=== PATIENT | female | born 1995 | race Caucasian/White ===

== ENCOUNTER 2021-12-25 08:53 | Observation (INO) | payer OTHER ==
--- OUTSIDE RECORDS SUMMARY | 2021-12-25 09:00 | XMS REPORT | Continuity of Care Document ---
:1995 Author Organization Formerly [facility] t Address [address] [place] [address] Care Team Providers Name Role Phone PCP, PATIENT DOES NOT HAVE A Primary Care Physician Unavaila ble TIFFANY SCHULTE Attending Clinician Unavailable Wilver Moreno Attending Clinician Unavailable Tiffany Schulte MD Attending Clinician Doctor Unassigned, [place] Attending Clinician Unavailable Michael Arroyo CRNA Attending Clinician Maribel Sanon MD Attending Clinician Only, Adc Test Attending Clinician Unavailable Emily Dalton RN Attending Clinician Unavailable 2, Adc Lab Attending Clinician Unavailable CHRISTINE VARNER Attending Clinician Unavailable Christine Varner MD Attending Clinician Pob, Adc Lab Main Attending Clinician Unavailable Ultrasound, Ang-Mfm Attending Clinician Unavailable Lola Aponte MD Attending Clinician [phone] LOLA APONTE Attending Clinician Unavailable TIFFANY SCHULTE Admitting Clinician Unavailable CHRISTINE AVRNER Admitting Clinician Unavailable Wilver Moreno Admitting Clinician Unavailable Tiffany Schulte MD Admitting Clinician Christine Varner MD Admitting Clinician Payers Payer Name Policy Type Policy Number Effective Date Expiration Date Tiffanie SAMUELSS [id number] 2015 HEALTH 00:00:00 Problems Condition Condition Condition Status Onset Resolution Last Treating Co mments Source Name Details Category Date Date Treatment Clinician Date Anemia Anemia Disease Active Univers affecting affecting 3-05 ity of 00:00: [place] [address] Medical Branch Obesity Obesity Disease Active Univers (BMI (BMI 7-07 ity of 30-39.9) 30-39.9) 00:00: [place] [address] Medical Branch Disease Active Overview: Univers complicate complicate 5-04 Formattin ity of d by d by 00:00: g of this [place] cerebral cerebral 00 note Medica l ventriculo ventriculo might be Branch megaly megaly different from the original. 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 Daughter is doing well Allergies, Adverse Reactions, Alerts Allergy Allergy Status Severity Reaction(s) Onset Inactive Treating Comm ents Source Name Type Date Date Clinician No Known DA Active U 0 [facility] [place] No Known DA Active U 0 [facility] 00:[facility] 00 l [facility] No Known DA Active U [facility] 8-[facility] 00:[facility]: [facility] 00 l [facility] No Known DA Active U [facility]ie 8-04 [facility] 00:[facility]: [facility] 00 l [facility] NO KNOWN Drug Active Univers ALLERGIE Class ity of S [facility] [place] Social History Social Habit Start Date Stop Date Quantity Comments Source Alcohol intake 2021-06-28 2021-06-28 Lifetime University of 00:00:00 00:00:00 non-drinker [facility] (finding) Branch Exposure to 2021-05-15 2021-06-14 Not sure University of SARS-CoV-2 00:00:00 16:04:00 [facility] (event) Branch Tobacco use and 2020-09-05 2020-09-05 Never used Universit y of exposure 00:00:00 00:00:00 [facility] [place] Sex Assigned At [birth year] Universit y of 00:00:00 00:00:00 [facility] [place] Smoking Status Start Date Stop Date Source Never smoker [facility] Medications Ordered Filled Start Stop Current Ordering Indication Dosage Frequency Signature Comments Components Source Medication Medication Date Date Medication? Clinician (SIG) Name Name levonorgest 2021- No [id number] 1{devic Univers reL 06-28 e} ity of (MIRENA) 16:15: 15:39 [place] IUD 1 00 :00 [employer] Branch levonorgest 2021- No [id number] 1{devi 1 Device, Univers reL 06-28 e} Intrauteri ity of (MIRENA) 16:15: 15:39 ne, ONCE, Sebastien as IUD 1 00 :00 1 dose, On [employer] Representative Fri Branch 06/28/21 at 1115, Routine Yes Take by [employer] vit 3-06 mouth. ity of calc,iron,f 16:11: [place] [address] Medical ( Branch VITAMIN ORAL) Yes Take by [employer] vit 3-06 mouth. ity of calc,iron,f 16:11: [address] ( Branch VITAMIN ORAL) ibuprofen Yes [id number] 600mg Take 1 Univers 600 mg 3-05 tablet by ity of tablet 00:00: mouth [place] 00 every 6 Medical (six) Branch hours as needed (Pain). Take with food or milk. ibuprofen Yes [id number] 600mg Take 1 Univers 600 mg 3-05 tablet by ity of tablet 00:00: mouth [place] 00 every 6 Medical (six) Branch hours as needed (Pain). Take with food or milk. ferrous 2020-03 Yes [id number] 325mg Take 1 Un christy sulfate 325 2-21 tablet by ity of mg (65 mg 00:00: mouth [place] iron) 00 daily. Medical tablet Branch ferrous 2020-03 Yes [id number] 325mg Take 1 Un christy sulfate 325 2-21 tablet by ity of mg (65 mg 00:00: mouth [place] iron) 00 daily. Medical tablet Branch Immunizations Ordered Filled Immunization Date Status Comments Sour e Immunization Name Name Rho (d) Immune 2021-03-12 Completed University of Globulin 00:00:00 [facility] [place] Rho (d) Immune 2021-03-12 Completed University of Globulin 00:00:00 [facility] [place] SARS-COV-2 COVID-19 2021-02-06 Completed Unive rsity of JERED/J&J VACCINE 00:00:00 [facility] [place] SARS-COV-2 COVID-19 2021-02-06 Completed Unive rsity of JERED/J&J VACCINE 00:00:00 [facility] [place] Influenza Virus 2020-11-07 Completed Universit y of Vaccine 00:00:00 [facility] [place] Influenza Virus 2020-11-07 Completed Universit y of Vaccine 00:00:00 [facility] [place] TDAP (ADACEL) 2020-10-31 Completed University of VACCINE 00:00:00 [facility] [place] TDAP (ADACEL) 2020-10-31 Completed University of VACCINE 00:00:00 [facility] [place] Vital Signs Vital Name Observation Time Observation Value Comments Source Systolic blood 2021-06-28 14:34:00 112 mm[Hg] Univer sity of pressure [facility] [place] Diastolic blood 2021-06-28 14:34:00 74 mm[Hg] Unive rsity of pressure [facility] [place] Heart rate 2021-06-28 14:34:00 68 /min [facility] Body temperature 2021-06-28 14:34:00 36.83 Tanya [facility] Respiratory rate 2021-06-28 14:34:00 18 /min [facility] Body height 2021-06-28 14:34:00 152.4 cm [facility] Body weight 2021-06-28 14:34:00 62.143 kg [facility] BMI 2021-06-28 14:34:00 26.76 kg/m2 [facility] Procedures Procedure Date / Time Performed Performing Clinician Sourc e DISCLOSURE AND 2021-06-28 05:01:00 Doctor Unassigned, No [facility] [place] CONSENT, MEDICAL AND Name Medical Bra [facility] SURGICAL PROCEDURES POCT TEST 2021-06-28 00:00:00 Tiffany Schulte [facility] [id number] 2019-03-05 00:00:00 02 [facility] Encounters Start End Encounter Admission Attending Care Care Encounter Source Date/Time Date/Time Type Type Clinicians Facility Department ID 2021-04-21 Outpatient P ADUM, [facility] [id number] Univers 18:52:40 TIFFANY oglesby [facility] 2021-03-11 Outpatient X [facility] [id number] Univers 00:26:13 ity [facility] 2019-03-05 Inpatient Josh, [facility] E[facility] [id number] [facility] 03:54:00 Wilver 59 Woman's [facility] 2021-08-09 2021-08-09 Outpatient R ADUM, [facility] [id number] Univers 15:00:00 15:00:00 TIFFANY oglesby [facility] 2021-08-09 2021-08-09 Outpatient R ADUM, [facility] [id number] Univers 15:00:00 15:00:00 TIFFANY oglesby [facility] 2021-06-28 2021-06-28 Outpatient R ADUM, [facility] [id number] Univers 09:30:00 10:07:23 TIFFANY gely [facility] 2021-06-28 2021-06-28 Office Adum, [facility] 1.2.840.114 [id number] Univers 09:30:00 10:07:23 Visit Tiffany Zelaya NICK 350.1.13.10 ity of [place] [phone] Ms dical NAL 134 [facility] 2021-06-28 2021-06-28 Orders Doctor ALEJANDRINA 1.2.840.114 [id number] Univers 00:00:00 00:00:00 Only Unassigned, KILO 350.1.13.10 ity of [place] [facility] 4.2.7.2.686 Sebastien as [phone] [address] 2021-06-14 2021-06-14 Outpatient R ADUM, [facility] [id number] Univers 16:00:00 16:48:27 TIFFANY oglesby [facility] 2021-06-14 2021-06-14 Routine Adum, [facility] 1.2.840.114 [id number] Univers 16:00:00 16:48:27 Tiffany L [place] 350.1.13.10 ity of Visit [place] [phone] Ms dical NAL [address] [place] [address] 2021-05-24 2021-05-24 Outpatient R [facility] [id number] Univers 15:30:00 15:58:29 TIFFANY ity [facility] 2021-05-24 2021-05-24 [facility] 1.2.840.114 [id number] Univers 15:30:00 15:58:29 Tiffany L [place] 350.1.13.10 ity of Visit [place] [phone] [address] 2021-05-24 2021-05-24 Outpatient R [facility] [id number] Univers 15:30:00 15:30:00 TIFFANY ity [facility] 2021-05-03 2021-05-05 Inpatient P [facility] [place] [id number] Univers 04:04:00 15:20:00 TIFFANY ity [facility] 2021-05-03 2021-05-05 [facility] 1.2.840.114 [id number] Univers 04:04:00 15:20:00 Encounter Tiffany Zelaya [place] 350.1.13.10 ity of [place] 4.2.7.2.686 [facility] [phone] [address] 2021-05-04 2021-05-04 Anesthesia [facility] 1.2.840.114 [id number] Univers 20:03:27 20:03:27 Event Michael ROMERO 350.1.13.10 i ty of [place] 4.2.7.2.686 [facility] [id number] [address] 2021-05-03 2021-05-03 Anesthesia Michael Arroyo [facility] 1.2.840.11 [id number] Univers 07:31:00 16:33:00 Event Maribel [place]onTON 350.1.13.10 ity of [facility] 4.2.7.2.[place] [id number] [facility] 083 Branch 2021-05-03 2021-05-03 Case Adum, [facility] 1.2.840.114 [id number] Univers 00:00:00 00:00:00 Management Tiffany ROMERO 350.1.13.10 ity of [place] [phone] Ms dical NAL 134 [facility] 2021-04-30 2021-04-30 Laboratory Only, Adc Test [place] 1.2.840. 114 [id number] Univers 09:45:00 10:00:00 Only Adum, Tiffany ROMERO 350.1.13.10 ity of [place] 4.2.7.2.686 [facility] [phone] [facility] [address] [place] 2021-04-30 2021-04-30 Outpatient R ADUM, [facility] [id number] Univers 09:45:00 09:45:00 TIFFANY ity [facility] 2021-04-30 2021-04-30 Outpatient R ADUM, [facility] [id number] Univers 09:00:00 09:14:04 TIFFANY ity [facility] 2021-04-30 2021-04-30 Routine Adum, [facility] 1.2.840.114 [id number] Univers 09:00:00 09:14:04 Tiffany ROMERO 350.1.13.10 ity of [place] [id number] Ms dical NAL 134 [facility] 2021-04-30 2021-04-30 Orders Doctor ALEJANDRIAN 1.2.840.114 [id number] Univers 00:00:00 00:00:00 Only Unassigned, KILO 350.1.13.10 ity of [place] [facility] 4.2.7.2.686 Sebastien as [phone] [facility] 009 Branch 2021-04-23 2021-04-23 Routine Adum, [facility] 1.2.840.114 [id number] Univers 13:00:00 13:36:31 Tiffany L [place] 350.1.13.10 ity of Visit [place] 4[place] [id number] Ms dical NAL 134 Branch [facility] 2021-04-23 2021-04-23 Outpatient R AD, [facility] [id number] Univers 13:00:00 13:36:31 TIFFANY ity [facility] 2021-04-21 2021-04-21 [facility] [id number] Univers 15:35:00 17:20:00 TIFFANY ity [facility] 2021-04-21 2021-04-21 [facility] 1.2.840.114 [id number] Univers 15:35:00 17:20:00 Encounter Tiffany ROMERO 350.1.13.10 [place] [phone] [facility] [address] [place] 2021-04-21 2021-04-21 Nurse ALEJANDRINA Dalton 1.2.840.114 [id number] Univers 00:00:00 00:00:00 Triage Emily BOATENG 350.1.13.10 it y of HOSPITAL 4.2.7.2.686 Sebast[place] as [id number] [facility] [address] [place] 2021-04-17 2021-04-17 Outpatient R AD, [facility] [id number] Univers 10:15:00 11:13:05 TIFFANY ity [facility] 2021-04-17 2021-04-17 [facility] 1.2.840.114 [id number] Univers 10:15:00 11:13:05 Tiffany ROMERO 350.1.13.10 ity of [place] [phone] Ms dical NAL 134 [facility] 2021-04-11 2021-04-11 Outpatient R AD, [facility] [id number] Univers 10:15:00 10:15:00 TIFFANY ity [facility] 2021-04-11 2021-04-11 Dermatology Nurse Practitioner 2, Adc Lab [facility] 1.2.840.114 [id number] Univers 10:15:00 10:15:00 Visit Adum, Tiffany ROMERO 350.1.13.10 ity [place] [phone] Ms dical NAL 353 [facility] 2021-04-10 2021-04-10 Outpatient R ADUM, [facility] [id number] Univers 16:15:00 16:58:36 TIFFANY ity [facility] 2021-04-10 2021-04-10 Routine Adum, [facility] 1.2.840.114 [id number] Univers 16:15:00 16:58:36 Tiffany ROMERO 350.1.13.10 ity of [place] [phone] [facility] 134 [facility] 2021-04-10 2021-04-10 Orders Doctor ALEJANDRINA 1.2.840.114 [id number] Univers 00:00:00 00:00:00 Only Unassigned, KILO 350.1.13.10 ity of [place] [facility] 4.2.7.2.686 Sebast[place] as [phone] [address] 2021-03-27 2021-03-27 Outpatient R ADUM, [facility] [id number] Univers 15:45:00 15:52:35 TIFFANY ity [facility] 2021-03-27 2021-03-27 Routine Adum, [facility] 1.2.840.114 [id number] Univers 15:45:00 15:52:35 Tiffany ROMERO 350.1.13.10 ity of [place] [id number] Ms dical NAL 134 [facility] 2021-03-27 2021-03-27 Outpatient R ADUM, [facility] [id number] Univers 15:45:00 15:45:00 TIFFANY ity [facility] 2021-03-20 2021-03-20 Outpatient R ADUM, [facility] [id number] Univers 16:15:00 16:57:40 TIFFANY ity [facility] 2021-03-20 2021-03-20 Routine Adum, [facility] 1.2.840.114 [id number] Univers 16:15:00 16:57:40 Tiffany Zelaya [place] 350.1.13.10 ity of [place] 4[place] [id number] [address] 2021-03-13 2021-03-13 Outpatient R ADUM, [facility] [id number] Univers 15:30:00 15:30:00 [facility] 2021-[facility] 2021-03-13 Outpatient R ADUM, [facility] [id number] Univers 11:00:00 11:00:00 [facility] 2021-03-12 2021-03-12 Outpatient R ADUM, [facility] [id number] Univers 10:45:00 12:06:22 [facility] 2021-03-12 2021-03-12 Routine Ad, [facility] 1.2.840.114 [id number] Univers 10:45:00 12:06:22 Tiffany Zelaya [place] 350.1.13.10 ity of [place] [phone] [address] 2021-03-12 2021-03-12 Case Adum, [facility] 1.2.840.114 [id number] Univers 00:00:00 00:00:00 Management Tiffany Zelaya [place] 350.1.13.10 ity of [place] [id number] [address] 2021-03-10 2021-03-11 Outpatient X CHRISTINE VARNER [facility] [id number] Univers 14:08:00 00:17:00 ity [facility] 2021-03-10 2021-03-11 Emergency Christine Varner [facility] 1.2.840.114 [id number] Univers 14:08:00 00:17:00 Cam NICK 350.1.13.10 i ty of [place] 4.2.7.2.686 [facility] [id number] [address] 2021-03-08 2021-03-08 Outpatient P ADUM, [facility] [id number] Univers 14:45:00 18:10:00 TIFFANY itgely [facility] 2021-03-08 2021-03-08 Hospital Ad, [facility] 1.2.840.114 [id number] Univers 14:45:00 18:10:00 Encounter Tiffany ROMERO 350.1.13.10 ity of [place] 4.2.7.2.686 [facility] [id number] [address] 2021-03-08 2021-03-08 Outpatient R AD, [facility] [id number] Univers 13:00:00 13:00:00 TIFFANY itgely [facility] 2021-03-08 2021-03-08 [facility] 1.2.243.824 [id number] Univers 00:00:00 00:00:00 Tiffany ROMERO 350.1.13.10 ity [facility] 4.2.7.2.686 [facility] PROFESSIO [phone] Me dical NAL [address] [place] [address] 2021-02-27 2021-02-27 Outpatient R ADUM, [facility] [id number] Univers 16:00:00 16:22:00 TIFFANY reny [facility] 2021-02-27 2021-02-27 Routine Ad, [facility] 1.2.840.114 [id number] Univers 16:00:00 16:22:00 Tiffany ROMERO 350.1.13.10 ity of [facility] 4.2.7.2.686 [facility] PROFESSIO [phone] Me dical NAL 134 [facility] 2021-02-27 2021-02-27 Outpatient R AD, [facility] [id number] Univers 16:00:00 16:00:00 TIFFANY batistagely [facility] 2021-02-19 2021-02-19 Case Adum, [facility] 1.2.840.114 [id number] Univers 00:00:00 00:00:00 Management Tiffany ROMERO 350.1.13.10 ity of [place].2.[place] [phone] Ms dical NAL 134 [facility] 2021-02-18 2021-02-18 Telephone Adum, [facility] 1.2.165.467 [id number] Univers 00:00:00 00:00:00 Tiffany ROMERO 350.1.13.10 ity of [place] 4.2.7.2.[place] [phone] Ms dical NAL 134 [facility] 2021-02-15 2021-02-15 Dermatology Nurse Practitioner Connie, Ad[facility] Lab Main [place] 1.2.8 40.114 [id number] Univers 09:15:00 09:30:00 Visit Adsravan, Tiffany ROMERO 350.1.13.10 ity [facility] 4.2.7.2.[place] [phone] Ms dical NAL 353 [facility] 2021-02-15 2021-02-15 Dermatology Nurse Practitioner Connie, [facility] Lab Main [facility] 1.2.8 40.114 [id number] Univers 09:15:00 09:30:00 Visit Adsravan, Tiffany ROMERO 350.1.13.10 ity of [facility] 4.2.7.2.[place] [phone] [facility] 2021-02-15 2021-02-15 Outpatient R AD, [facility] [id number] Univers 09:15:00 09:15:00 TIFFANY ity [facility] 2021-02-15 2021-02-15 Outpatient R ADUM, [facility] [id number] Univers 09:15:00 09:15:00 TIFFANY ity [facility] 2021-02-15 2021-02-15 Orders Doctor TINOCO 1.2.840.114 [id number] Univers 00:00:00 00:00:00 Only Unassigned, KILO 350.1.13.10 ity of [place] [facility] 4.2.7.2.686 Sebastien as [phone] [address] 2021-02-13 2021-02-13 Outpatient R ADUM, [facility] [id number] Univers 13:00:00 13:46:14 TIFFANY [facility] 2021-02-13 2021-02-13 Routine Adum, [facility] 1.2.840.114 [id number] Univers 13:00:00 13:46:14 Tiffany L [place] 350.1.13.10 ity of [place] [phone] Ms dical NAL [address] [place] [address] 2021-02-13 2021-02-13 Outpatient R ADUM, [facility] [id number] Univers 13:00:00 13:46:14 TIFFANY [facility] 2021-01-30 2021-01-30 Outpatient R ADUM, [facility] [id number] Univers 13:00:00 13:00:00 [facility] 2021-01-17 2021-01-17 Dermatology Nurse Practitioner Ultrasound, [facility] 1.2 .840.114 [id number] Univers 10:42:05 11:57:05 Visit Lola Aponte Radha SKID ADZER 350.1. 13.10 ity of REGIONAL 4.2.7.2.686 Sebastien as MATERNAL [phone] Med ical & CHILD [address] [place] [address] 2021-01-17 2021-01-17 Outpatient P FAY [facility] [id number] Univers 10:45:00 10:45:00 BUNKER HILLGely [facility] 2021-01-02 2021-01-02 Outpatient R ADUM, [facility] [id number] Univers 16:00:00 16:26:50 TIFFANY [facility] 2021-01-02 2021-01-02 Routine Adum, [facility] 1.2.840.114 [id number] Univers 15:46:24 16:26:50 Tiffany ROMERO 350.1.13.10 ity of [place] 4[place] [id number] Ms dical NAL [address] [place] [address] 2020-11-23 2020-11-23 Dermatology Nurse Practitioner 2, Adc Lab [facility] 1.2.840.114 [id number] Univers 11:38:15 11:53:15 Visit Adum, Tiffany [place] 350.1.13.10 ity of [place] 4.2.7.2.[place] [phone] Ms dical nal 353 [facility] 2020-11-23 2020-11-23 Routine Adum, [facility] 1.2.840.114 [id number] Univers 10:47:15 11:36:42 Tiffany [place] 350.1.13.10 ity of Visit [place] 4.2.7.2.686 [place] [phone] Ms dical nal 134 [facility] 2020-11-23 2020-11-23 Outpatient R ADUM, [facility] [id number] Univers 11:00:00 11:00:00 TIFFANY itgely [facility] 2020-11-23 2020-11-23 Case Adum, [facility] 1.2.840.114 [id number] Univers 00:00:00 00:00:00 Management Tiffany [place] 350.1.13.10 ity of [place] 4.2.7.2.[place] [phone] Ms dical nal 134 [facility] 2020-11-01 2020-11-01 Telephone Adum, [facility] 1.2.400.191 [id number] Univers 00:00:00 00:00:00 Tiffany [place] 350.1.13.10 ity of [place] 4.2.7.2.[place] [phone] Ms dical nal 134 [facility] 2020-10-26 2020-10-26 Outpatient R ADUM, [facility] [id number] Univers 11:00:00 11:00:00 TIFFANY itgely [facility] 2020-10-26 2020-10-26 Routine Adum, [facility] 1.2.840.114 [id number] Univers 10:19:32 10:47:46 Tiffany Zelaya [place] 350.1.13.10 ity of Visit [place] 4.2.7.2.686 [place] [phone] Ms dical nal 134 [facility] 2020-10-26 2020-10-26 Routine Adum, [facility] 1.2.840.114 [id number] Univers 10:19:32 10:47:46 Tiffany [place] 350.1.13.10 ity of Visit [place] 4.2.7.2.686 [place] [phone] Ms dical nal 134 [facility] 2020-10-24 2020-10-24 Outpatient R ADUM, [facility] [id number] Univers 11:00:00 11:00:00 TIFFANY ity of [facility] [place] 2020-09-26 2020-09-26 Dermatology Nurse Practitioner 2, Adc Lab [facility] 1.2.840.114 [id number] Univers 10:39:53 10:54:53 Visit Adum, Tiffany Romero 350.1.13.10 ity of [place] 4.2.7.2.686 [place] [phone] Ms dical nal 353 [facility] 2020-09-26 2020-09-26 Initial Adum, [facility] 1.2.840.114 [id number] Univers 09:15:14 10:31:31 Tiffany Zelaya [place] 350.1.13.10 ity of Visit [place] 4.2.7.2.686 [place] [phone] Ms dical nal 134 [facility] 2020-09-26 2020-09-26 Outpatient R ADUM, [facility] [id number] Univers 09:30:00 09:30:00 TIFFANY ity of [facility] 2020-09-26 2020-09-26 Orders Doctor ALEJANDRINA [id number] [employer] 00:00:00 00:00:00 Only Unassigned, KILO [id number] ity of [place] [facility] [id number] Sebastien as [phone] [address] 2020-09-05 2020-09-05 Office Adum, [facility] [id number] Univers 09:42:56 10:37:53 Visit Tiffany Romero [id number] [facility] [id number] Daniella Ruiz [phone] Ms dical [address] 2020-09-05 2020-09-05 Outpatient Justin SCHULTE [facility] [id number] [employer] 10:00:00 10:00:00 [facility] Test Description Test Time Test Comments Results Result Comments Source POCT TEST 2021-06-28 14:39:00 Test Item Value Reference Range Interpretation Comme nts POCT PREG (test code = 1605) Negative On board controls acceptable with C Line (test code = 3574) Yes POCT PREG LOT # (test code = 3575) POCT PREG TEST DATE (test code = 3576) [facility] [id number] 15:59:00 Test Item Value Reference Range Interpretation Comments HEMOGLOBIN (test code = HGB) 7.6 g/dL 10.7-13.9 L HEMATOCRIT (test code = HCT) 23.7 % 32.1-42.1 L HGB [id number] 04:44:00 Test Item Value Reference Range Interpretation Comments HEMOGLOBIN (test code = 7.5 g/dL 10.7-13.9 L RESU LTS VERIFIED BY HGB) REPEAT ANALYSIS HEMATOCRIT (test code = 23.4 % 32.1-42.1 L HCT) AG HEPATITIS B [id number] 06:03:00 Test Item Value Reference Range Interpretation Comments AG HEPATITIS B SURFACE (test code NONREACTIVE NONREACTIVE = HBSAG) IS CONSENT FORM SIGNED FOR HIV TESTING? YAB HEPATITIS C [id number] 06:03:00 Test Item Value Reference Range Interpretation Comments AB HEPATITIS C (test code = NONREACTIVE NONREACTIVE HCVAB) SIGNAL TO CUTOFF (test code = 0.10 <0.80 N CUTOFF) IS CONSENT FORM SIGNED FOR HIV TESTING? YAB [id number] 06:03:00 Test Item Value Reference Range Interpretation Comments AB TREPONEMA (test code = TREPAB) NONREACTIVE NONREACTIVE IS CONSENT FORM SIGNED FOR HIV TESTING? YAB HIV 1 06:03:00 Test Item Value Reference Range Interpretation Comments AB HIV 1 2 (test NONREACTIVE NONREACTIVE Done by [facility] code = [id number]) 4th Gen HIV Ag/Ab Combo Screen IS CONSENT FORM SIGNED FOR HIV TESTING? YAG HEPATITIS B [id number] 05:16:00 Test Item Value Reference Range Interpretation Comments AG HEPATITIS B SURFACE (test code NONREACTIVE NONREACTIVE = HBSAG) IS CONSENT FORM SIGNED FOR HIV TESTING? YAB HEPATITIS C [id number] 05:16:00 Test Item Value Reference Range Interpretation Comments AB HEPATITIS C (test code = HCVAB) NONREACTIVE SIGNAL TO CUTOFF (test code = CUTOFF) <0.80 IS CONSENT FORM SIGNED FOR HIV TESTING? YAB [id number] 05:16:00 Test Item Value Reference Range Interpretation Comments AB TREPONEMA (test code = TREPAB) NONREACTIVE NONREACTIVE IS CONSENT FORM SIGNED FOR HIV TESTING? YAB HIV 1 05:16:00 Test Item Value Reference Range Interpretation Comments AB HIV 1 2 (test code = CIK21TG) NONREACTIVE IS CONSENT FORM SIGNED FOR HIV TESTING? YCBC W/AUTO [id number] 04:30:00 Test Item Value Reference Range Interpretation Comments WHITE BLOOD CELL (test code = WBC) 6.7 K/mm3 6.6-12.1 N RED BLOOD CELL (test code = RBC) 3.89 M/mm3 3.45-5.01 N HEMOGLOBIN (test code = HGB) 11.2 g/dL 10.7-13.9 N HEMATOCRIT (test code = HCT) 34.0 % 32.1-42.1 N MEAN CELL VOLUME (test code = MCV) 87 fL 84.1-94.8 N MEAN CELL HGB (test code = MCH) 28.8 pg 27-35 N MEAN CELL HGB CONCETRATION (test 32.9 gm/dL 32.2-34.1 N code = MCHC) RED CELL DISTRIBUTION WIDTH (test 14.2 % 12.4-16.5 N code = RDW) PLATELET COUNT (test code = PLT) 176 K/mm3 133-385 N IMMATURE PLATELET FRACTION (test 0.0 % 0.0-10.8 N code = IPF) MEAN PLATELET VOLUME (test code = 10.6 fl 9.1-12.7 N MPV) NEUTROPHIL % (test code = NT%) 75.9 % 56.5-79.4 N LYMPHOCYTE % (test code = LY%) 16.4 % 14.3-34.3 N MONOCYTE % (test code = MO%) 7.3 % 5.1-10.4 N EOSINOPHIL % (test code = EO%) 0.0 % 0.1-3.0 L BASOPHIL % (test code = BA%) 0.0 % 0.1-1.0 L NEUTROPHIL # (test code = NT#) 5.1 K/mm3 LYMPHOCYTE # (test code = LY#) 1.1 K/mm3 MONOCYTE # (test code = MO#) 0.5 K/mm3 EOSINOPHIL # (test code = EO#) 0 K/mm3 BASOPHIL # (test code = BA#) 0.0 K/mm3 RBC MORPHOLOGY REQUIRED (test code NORMAL NORMAL = RBCM) PLATELET MORPHOLOGY REQUIRED (test NORMAL NORMAL code = PLTMR)
[2021-12-25 09:30] LABS: Hematocrit 36.2 % (36.0-45.0); Lymphocytes % 12.4 % (15.3-44.8); MCV 84.1 fL (80-100); MPV 7.5 fL (7.6-11.3)
[2021-12-25 09:37] LABS: Urine Blood Negative (Negative); Urine Glucose Negative (Negative); Urine Protein Negative (Negative)
[2021-12-25 09:52] LABS: Albumin 3.8 g/dL (3.4-5.0); Bilirubin Total 0.5 mg/dL (0.2-1.0); Potassium 3.8 mmol/L (3.5-5.1); Protein, Total 7.2 g/dL (6.4-8.2)
[2021-12-25 09:53] LABS: Urine Bacteria <20 /HPF (<20); Urine RBC <5 /HPF (None Seen)
--- NOTE | 2021-12-25 11:10 | RAD REPORT ---
EXAM DESCRIPTION: CTAbdomen Pelvis W Contrast - 12/25/2021 10:50 am CLINICAL HISTORY: abd pain COMPARISON: No comparisons TECHNIQUE: CT of the abdomen and pelvis was performed with IV contrast. All CT scans are performed using dose optimization technique as appropriate and may include automated exposure control or mA/KV adjustment according to patient size. FINDINGS: Lower chest: Small hiatal hernia. Liver: No acute abnormality or suspicious lesions. Biliary: No biliary ductal dilatation. Stomach: No significant focal abnormality. Duodenum: No significant focal abnormality. Pancreas: No significant abnormality. Spleen: No significant abnormality. Adrenal: No suspicious lesions. Kidney/ureter: No hydronephrosis. No renal calculi. Retroperitoneum: No retroperitoneal adenopathy. Vascular: No aneurysm. Bowel: Abnormally dilated appendix in the right lower quadrant demonstrating wall thickening. Stool i s present within the lumen.. Peritoneum: Small volume of free fluid. Bladder: Grossly unremarkable. Reproductive: Cystic structures in both adnexa probably physiologic cysts. Bones: No acute fracture. Other: n/a IMPRESSION: Abnormally dilated and thickened appendix with minimal periappendiceal stranding is susp icious for early or mild acute appendicitis. Suggest clinical correlation.
--- NOTE | 2021-12-25 11:26 | ER ---
Nurse's Notes [facility] Name: Peggy Puri Age: 26 yrs Sex: Female : 1995 Arrival Date: 12/25/2021 Time: 08:58 Bed 6 Private MD: Diagnosis: Unspecified acute appendicitis Presentation: 12/25 09:09 Chief complaint: Patient states: pain started in her stomach about two to three days kc6 ago. Coronavirus screen: Vaccine status: Patient reports receiving the 2nd dose of the covid vaccine. At this time, the client does not indicate any symptoms associated with coronavirus-19. Ebola Screen: No symptoms or risks identified at this time. Initial Sepsis Screen: Does the patient meet any 2 criteria? No. Patient's initial sepsis screen is negative. Does the patient have a suspected source of infection? No. Patient's initial sepsis screen is negative. Risk Assessment: Do you want to hurt yourself or someone else? Patient reports no desire to harm self or others. Onset of symptoms was December 23, 2021. 09:09 Method Of Arrival: Ambulatory kc6 09:09 Acuity: KENNETH 3 kc6 Triage Assessment: 09:12 General: Appears in no apparent distress. comfortable, Behavior is calm, cooperative, kc6 appropriate for age. Pain: Complains of pain in epigastric area, left upper quadrant and left lower quadrant Pain does not radiate. Pain currently is 3 out of 10 on a pain scale. at worst was 8 out of 10 on a pain scale. Quality of pain is described as aching, stabbing, throbbing, Pain began 2-3 days ago. Is continuous, Alleviated by nothing. Aggravated by increased activity, Current management is with Tylenol, is ineffective. EENT: No signs and/or symptoms were reported regarding the EENT system. Neuro: Larsen Agitation-Sedation Scale (RASS): 0 - Alert and Calm Level of Consciousness is awake, alert, obeys commands, Oriented to person, place, time, situation, Appropriate for age. Cardiovascular: Heart tones S1 S2 present Capillary refill < 3 seconds. Respiratory: Airway is patent Respiratory effort is even, unlabored, Respiratory pattern is regular, symmetrical, Breath sounds are clear bilaterally. GI: Abdomen is flat, non-distended, Last BM was December 24, 2021. Bowel sounds present X 4 quads. Abd is soft X 4 quads Abdomen is tender to palpation in epigastric area, left upper quadrant and left lower quadrant Reports epigastric pain, Patient currently denies diarrhea, nausea, vomiting. : No signs and/or symptoms were reported regarding the genitourinary system. Derm: No signs and/or symptoms reported regarding the dermatologic system. Skin is intact, Skin is pink, warm \T\ dry. Musculoskeletal: No signs and/or symptoms reported regarding the musculoskeletal system. Circulation, motion, and sensation intact. Capillary refill < 3 seconds, Range of motion: intact in all extremities. 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 - Social history:: Smoking status: Patient denies any tobacco usage or history of. Screenin:14 Abuse screen: Denies threats or abuse. Denies injuries from another. Nutritional kc6 screening: No deficits noted. Tuberculosis screening: No symptoms or risk factors identified. Fall Risk No fall in past 12 months (0 pts). No secondary diagnosis (0 pts). IV access (20 points). Ambulatory Aid- None/Bed Rest/Nurse Assist (0 pts). Gait- Normal/Bed Rest/Wheelchair (0 pts) Mental Status- Oriented to own ability (0 pts). Total Almonte Fall Scale indicates No Risk (0-24 pts). Assessment: 09:18 Reassessment: see triage assessment. kc6 10:16 Reassessment: Patient appears in no apparent distress at this time. No changes from kc6 previously documented assessment. Patient and/or family updated on plan of care and expected duration. Pain level reassessed. Patient is alert, oriented x 3, equal unlabored respirations, skin warm/dry/pink. client stated her pain is increased to a 6/10. 11:26 Reassessment: Patient appears in no apparent distress at this time. No changes from kc6 previously documented assessment. Patient and/or family updated on plan of care and expected duration. Pain level reassessed. Patient is alert, oriented x 3, equal unlabored respirations, skin warm/dry/pink. GERHARD Chavez at bedside. client stated her pain is increased to 8/10. 12:05 Reassessment: Patient appears in no apparent distress at this time. No changes from kc6 previously documented assessment. Patient and/or family updated on plan of care and expected duration. Pain level reassessed. Patient is alert, oriented x 3, equal unlabored respirations, skin warm/dry/pink. client stated her pain is decreased to 4/10. taken to preop with OR nurse. Vital Signs: 09:09 BP 119 / 78 LA Sitting (auto/reg); Pulse 69 LA; Resp 16 S; Temp 98.1(O); Pulse Ox 100% kc6 on R/A; Weight 58.97 kg (R); Height 5 ft. 0 in. (152.40 cm) (R); Pain 3/10; 10:15 BP 110 / 67; Pulse 71; Resp 16 S; Temp 98.2(O); Pulse Ox 100% on R/A; Pain 6/10; kc6 11:24 BP 109 / 57; Pulse 68; Resp 16 S; Temp 98.0(O); Pulse Ox 100% ; Pain 8/10; kc6 12:06 BP 129 / 71; Pulse 74; Resp 18 S; Temp 98.1(O); Pulse Ox 100% on R/A; Pain 4/10; kc6 09:09 Body Mass Index 25.39 (58.97 kg, 152.40 cm) kc6 ED Course: 08:58 Patient arrived in ED. rg4 09:01 Cheryle Apodaca, RN is Primary Nurse. kc6 09:01 Francisca Bernstein FNP-C is PHCP. kb 09:01 José Miguel Wiseman DO is Attending Physician. kb 09:12 Triage completed. kc6 09:17 Arm band placed on. kc6 09:26 CBC with Diff Sent. kc6 09:26 CMP Sent. kc6 09:26 Lipase Sent. kc6 09:30 Inserted saline lock: 20 gauge in right antecubital area, using aseptic technique. kc6 Blood collected. 09:37 Urine Microscopic Only Sent. kc6 10:52 CT Abd/Pelvis - IV Contrast Only In Process Unspecified. EDMS 11:26 Raghav Lee MD is Hospitalizing Provider. kb 12:04 SARS RAPID Sent. kc6 12:06 No provider procedures requiring assistance completed. Patient admitted, IV remains in kc6 place. 12:07 Patient has correct armband on for positive identification. Bed in low position. Call kc6 light in reach. Side rails up X2. Adult w/ patient. Administered Medications: 12:04 Drug: Flagyl (metroNIDAZOLE) 500 mg Volume: 100 ml; Route: IVPB; Rate: 200 ml/hr; kc6 Infused Over: 30 mins; Site: right antecubital; 12:09 Follow up: Response: No adverse reaction; IV Status: Infusion continued kc6 12:04 Drug: NS 0.9% 1000 ml Route: IV; Rate: 125 ml/hr; Site: right antecubital; kc6 12:09 Follow up: Response: No adverse reaction; IV Status: Infusion continued kc6 12:05 Drug: morphine 4 mg Route: IVP; Infused Over: 4 mins; Site: right antecubital; kc6 12:08 Follow up: Response: No adverse reaction; Pain is decreased; RASS: Alert and Calm (0) kc6 12:05 Drug: Zofran (Ondansetron) 4 mg Route: IVP; Site: right antecubital; kc6 12:08 Follow up: Response: No adverse reaction; Nausea is decreased kc6 12:05 Drug: Rocephin (cefTRIAXone) 1 grams Route: IV; Rate: calculated rate; Site: right kc6 antecubital; 12:09 Follow up: Response: No adverse reaction; IV Status: Completed infusion; IV Intake: [id number] Medication: 12:07 VIS not applicable for this client. kc6 Intake: 12:09 IV: 10ml; Total: 10ml. kc6 Outcome: 11:26 Decision to Hospitalize by Provider. kb 12:07 Admitted to OR accompanied by nurse, via wheelchair, with chart. kc6 12:07 Condition: stable 12:07 Instructed on the need for admit, Demonstrated understanding of need for admit/surgery. 12:09 Patient left the ED. kc6 Signatures: Dispatcher [employer] EDAL Francisca Bernstein, KENNEL MANAGER-C KENNEL MANAGER-Anahy Wolf rg4 Apodaca, Cheryle, RN RN kc6
--- NOTE | 2021-12-25 11:27 | EDPHYS ---
Physician Documentation [facility] Name: Peggy Puri Age: 26 yrs Sex: Female : 1995 Arrival Date: 12/25/2021 Time: 08:58 Bed 6 Private MD: ED Physician José Miguel Wiseman HPI: 12/25 12:13 This 26 yrs old Female presents to ER via Ambulatory with complaints of Abdominal Pain. kb 12:13 The patient presents with abdominal pain in the periumbilical area. Onset: The kb symptoms/episode began/occurred 2 day(s) ago. The symptoms do not radiate. Associated signs and symptoms: none. The symptoms are described as constant. Modifying factors: The symptoms are alleviated by nothing, the symptoms are aggravated by nothing. Severity of pain: At its worst the pain was moderate in the emergency department the pain is unchanged. The patient has not experienced similar symptoms in the past. The patient has not recently seen a physician. 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 - Social history:: Smoking status: Patient denies any tobacco usage or history of. ROS: 12:13 Constitutional: Negative for fever, chills, and weight loss. kb 12:13 Abdomen/GI: Positive for abdominal pain, Negative for nausea, vomiting, and diarrhea. 12:13 All other systems are negative. Exam: 12:13 Constitutional: This is a well developed, well nourished patient who is awake, alert, kb and in no acute distress. Head/Face: Normocephalic, atraumatic. ENT: Moist Mucous membranes Cardiovascular: Regular rate and rhythm with a normal S1 and S2. No gallops, murmurs, or rubs. No pulse deficits. Respiratory: Respirations even and unlabored. No increased work of breathing. Talking in full sentences Skin: Warm, dry with normal turgor. Normal color. MS/ Extremity: Pulses equal, no cyanosis. Neurovascular intact. Full, normal range of motion. Neuro: Awake and alert, GCS 15, oriented to person, place, time, and situation. Moves all extremities. Normal gait. Psych: Awake, alert, with orientation to person, place and time. Behavior, mood, and affect are within normal limits. 12:13 Abdomen/GI: Inspection: abdomen appears normal, Bowel sounds: normal, Palpation: soft, in all quadrants, moderate abdominal tenderness, in the right upper quadrant and right lower quadrant. Vital Signs: 09:09 BP 119 / 78 LA Sitting (auto/reg); Pulse 69 LA; Resp 16 S; Temp 98.1(O); Pulse Ox 100% kc6 on R/A; Weight 58.97 kg (R); Height 5 ft. 0 in. (152.40 cm) (R); Pain 3/10; 10:15 BP 110 / 67; Pulse 71; Resp 16 S; Temp 98.2(O); Pulse Ox 100% on R/A; Pain 6/10; kc6 11:24 BP 109 / 57; Pulse 68; Resp 16 S; Temp 98.0(O); Pulse Ox 100% ; Pain 8/10; kc6 12:06 BP 129 / 71; Pulse 74; Resp 18 S; Temp 98.1(O); Pulse Ox 100% on R/A; Pain 4/10; kc6 09:09 Body Mass Index 25.39 (58.97 kg, 152.40 cm) kc6 MDM: 09:01 Patient medically screened. kb 11:25 Data reviewed: vital signs, nurses notes. Data interpreted: Pulse oximetry: on room air kb is 100 %. Interpretation: normal. Counseling: I had a detailed discussion with the patient and/or guardian regarding: the historical points, exam findings, and any diagnostic results supporting the discharge/admit diagnosis, lab results, radiology results, the need for further work-up and treatment in the hospital. Physician consultation: Raghav Lee MD was contacted at 11:26, regarding admission, patient's condition, and will see patient shortly. 12/25 09:10 Order name: CBC with Diff; Complete Time: 09:33 kb 12/25 09:10 Order name: CMP; Complete Time: 09:57 kb 12/25 09:10 Order name: Lipase; Complete Time: 09:57 kb 12/25 09:10 Order name: Urine Microscopic Only; Complete Time: 09:57 kb 12/25 09:37 Order name: Urine Dipstick-Ancillary; Complete Time: 09:38 EDMS 12/25 10:42 Order name: Urine --Ancillary (enter results); Complete Time: 10:56 bd 12/25 09:10 Order name: IV Saline Lock; Complete Time: 09:21 kb 12/25 10:37 Order name: CT Abd/Pelvis - IV Contrast Only; Complete Time: 11:22 kb 12/25 11:44 Order name: SARS RAPID kb 12/25 09:10 Order name: Labs collected and sent; Complete Time: 09:21 kb 12/25 09:10 Order name: Urine Dipstick-Ancillary (obtain specimen); Complete Time: 09:37 kb 12/25 09:10 Order name: Urine Test (obtain specimen); Complete Time: 09:37 kb Administered Medications: 12:04 Drug: Flagyl (metroNIDAZOLE) 500 mg Volume: 100 ml; Route: IVPB; Rate: 200 ml/hr; kc6 Infused Over: 30 mins; Site: right antecubital; 12:09 Follow up: Response: No adverse reaction; IV Status: Infusion continued kc6 12:04 Drug: NS 0.9% 1000 ml Route: IV; Rate: 125 ml/hr; Site: right antecubital; kc6 12:09 Follow up: Response: No adverse reaction; IV Status: Infusion continued kc6 12:05 Drug: morphine 4 mg Route: IVP; Infused Over: 4 mins; Site: right antecubital; kc6 12:08 Follow up: Response: No adverse reaction; Pain is decreased; RASS: Alert and Calm (0) kc6 12:05 Drug: Zofran (Ondansetron) 4 mg Route: IVP; Site: right antecubital; kc6 12:08 Follow up: Response: No adverse reaction; Nausea is decreased kc6 12:05 Drug: Rocephin (cefTRIAXone) 1 grams Route: IV; Rate: calculated rate; Site: right [facility] antecubital; 12:09 Follow up: Response: No adverse reaction; IV Status: Completed infusion; IV Intake: [id number] Disposition: 21:12 Co-signature as Attending Physician, José Miguel Wiseman DO I was immediately available on-site ms3 in the Emergency Department for consultation in the care of the patient.. Disposition Summary: 12/25/21 11:26 Hospitalization Ordered Hospitalization Status: Observation kb Provider: Raghav Lee Location: Telemetry/MedSurg (observation) kb Condition: Stable kb Problem: new kb Symptoms: are unchanged kb Bed/Room Type: Standard Room Assignment: Diagnosis - Unspecified acute appendicitis kb Forms: - Medication Reconciliation Form kb - SBAR form kb Signatures: Dispatcher [employer] EDMS Francisca Bernstein, RAMONC MEENU-José Miguel Sandoval DO DO ms3 Cheryle Apodaca, RN RN kc6
[2021-12-25] MEDS ORDERED: MORPHINE 4 MG/ML SYR ONE (11:33)
[2021-12-25] MEDS ORDERED: CEFTRIAXONE 1000 MG/VIAL ONE (11:33)
[2021-12-25] MEDS ORDERED: METRONIDAZOLE 500mg IVPB 500 MG/100 ML BAG IV ONE (11:34)
[2021-12-25] MEDS ORDERED: ONDANSETRON 4 MG/2 ML VIAL ONE ×3 (11:34→14:25)
[2021-12-25] MEDS ORDERED: NA CHLORIDE 0.9% 1,000 ML ONE (11:34)
[2021-12-25 12:43] VITALS: O2SAT 100
[2021-12-25 12:48] LABS: SARS-CoV-2 Antigen Rapid Res Negative (Negative)
[2021-12-25] MEDS: BUPIVACAINE 0.5% Inj,MDV 50 mL VIAL ONE ×2 (12:50→13:32)
[2021-12-25] MEDS ORDERED: ROCURONIUM 50 MG/5 ML VIAL IV ONE (13:08)
[2021-12-25] MEDS ORDERED: FENTANYL CITR 100 MCG/2 ML ONE (13:08)
[2021-12-25] MEDS ORDERED: MIDAZOLAM HCL 2 MG/2 ML INJ ONE (13:08)
[2021-12-25] MEDS ORDERED: propofoL 200 MG/20 ML VIAL IV ONE (13:08)
[2021-12-25] MEDS ORDERED: LIDOCAINE 2% MPF 5 ML VIAL ONE (13:11)
[2021-12-25] MEDS ORDERED: KETOROLAC 30 MG/ML INJ ONE (13:44)
[2021-12-25] MEDS ORDERED: GLYCOPYRROLATE 0.2 MG/ML SYR ONE (13:44)
[2021-12-25] MEDS ORDERED: NEOSTIGMINE 1 MG/ML -5 ML ONE (13:45)
--- NOTE | 2021-12-25 13:49 | P.BOP ---
Preoperative diagnosis: acute appendicitis Postoperative diagnosis: same Primary procedure: Laparoscopic appendectomy Estimated blood loss: <10cc Specimen: tj Findings: inflammed distended appendix Anesthesia: General Complications: None Transferred to: Recovery Room Condition: Good
--- NOTE | 2021-12-25 13:50 | HP ---
Date of Admission: 12/25/2021 Diagnosis: Acute appendicitis. History Of Present Illness: This is the case of a 26-year-old patient, who came to the ER today afte r having 2-1/2 days of abdominal pain, started in the periumbilical, moved to the right side, sometim es right upper quadrant, sometimes in the lower abdomen, but is mainly on the ventral region and righ t side. She thought it was just gas. She has been trying to deal with that for the last 2-1/2 days until today she felt like she was going to and she decided to come to the ER. CAT scan was done and it was found to have acute appendicitis with dilated appendix and periappendiceal fluid, and a larson rgical consult was obtained for emergent appendectomy. She denies any trauma, any dysuria, hematuria , hematochezia, melena. Denies any recent traveling out of the country. Denies any family member si ck at home. Review of Systems: Ten points otherwise unremarkable. Allergies: NONE. Past Medical History: None. Medications: None. Past Surgical History: None. , she has 5 kids. Immunization History: She had a second dose of COVID vaccine. Social History: She does not smoke. She does not drink alcohol. Physical Examination: General: The patient is awake, alert. HEENT: Pupils are equal and reactive. Anicteric. Neck: Supple. Chest: Clear. Abdomen: Abdominal tenderness present. It came from the epigastric, periumbilical and then right lo wer quadrant. The etiology of the epigastric is unknown at this moment, we noted right lower quadran t and periumbilical correlated with the CAT scan findings. Breasts: Deferred. Pelvic: Deferred. Rectal: Deferred. Extremities: Good capillary refill. Cranial nerves 2 through 12 grossly within normal limits. Laboratory Data: Blood work shows WBC count of 8.3 with hemoglobin of 12 and platelets of 263. Pota ssium 3.8, chloride is 110. UA is nitrate negative. negative. Assessment And Plan: This is the case of a 26-year-old patient with history of abdominal pain for 3 days. Once again, she say she is trying to "tough her up". She has etiquette and she knows where he r pain is and then she feels at this time this morning she could not take it and the pain moved. Dur ing the imaging, found to have a dilated appendix with periappendiceal fluid. That will explain the right lower quadrant and periumbilical area at the epigastric area. Obviously, she has been through a stress of more than a day. 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 She may have more than 1 pathology, although the emergent 1 right now is the tj endix. We advised her the importance of diet and also following up her compressor station chief engineer. The aimee ent was emergently booked in the OR with benefits, alternatives, and risks of laparoscopic possible o pen appendectomy fully explained, which include, but not limited to infection, bleeding, damage to ad jacent structures, anesthesia complication, negative appendix, DE, and even . She also understa nds this may not relieve any symptoms. She might need more than one surgical intervention. JENNIFER Voice ID: [id number]
[2021-12-25] MEDS ORDERED: MEPERIDINE HCL 25 MG/ML SYR ONE (14:25)
[2021-12-25] MEDS: HYDROMORPHONE HCL 1 MG/ML INJ ONE ×2 (14:25→14:45)
[2021-12-25] MEDS: NA CHLORIDE 0.9% 1,000 ML IV SCH (15:52)
[2021-12-25 16:13] VITALS: BMI 25.4
[2021-12-25] MEDS: METRONIDAZOLE 500mg IVPB 500 MG/100 ML BAG IV SCH (17:11)
[2021-12-25] MEDS: CEFOXITIN 1 GM in NA CHLORIDE 0.9% 50 ML IVPB SCH (17:11)
[2021-12-25] MEDS: HYDROCODONE/APAP 5/325 MG TAB PO PRN (17:17)
[2021-12-25] MEDS: MORPHINE 2 MG/ML SYR IV PRN ×2 (19:38→23:28)
[2021-12-25] MEDS: ONDANSETRON 4 MG/2 ML VIAL IV PRN (19:38)
--- NOTE | 2021-12-25 22:17 | OP ---
Date of Procedure: 12/25/2021 Surgeon: Raghav Lee MD Preoperative Diagnosis: Appendicitis. Postoperative Diagnosis: Appendicitis. Procedure: Laparoscopic appendectomy. Estimated Blood Loss: Less than 10 cc. Specimen: Inflamed dilated appendix. Anesthesia: General plus local. Complications: None. Indications: This is a case of a 26-year-old patient with 3-day history of abdominal pain and today decided to come to the ER because it was too intense, the pains and she was diagnosed with acute appe ndicitis. So, she was taken emergently to the operating room for laparoscopic possible open appendec carmen with benefits, alternatives, and risks previously explaining including, but not limited to infec tion, bleeding, damage to adjacent structures, anesthesia complication, [place] and even . She also understands this may not relieve her symptoms. She might need more than one surgical intervention. She understood and signed consent. Procedure In Detail: The patient was brought to the operating room and placed in supine position. A nesthesia was done without complication. Abdominal area was prepped and draped in a sterile fashion. Marcaine 0.5% was injected for local anesthetic followed by sharp incision of the skin in the infra umbilical region. Incision was carried down to fascia, which was opened under direct vision. Perito neum was encountered and opened under direct vision. Vicryl #1 was placed inside the fascia. Yan trocar was carefully introduced. No pneumoperitoneum was obtained. I placed 2 more trocars, 5 mm e ach one of them, 1 in the suprapubic area and another 1 in the left lower quadrant under direct visua lization. This allowed me to visualize the area of the appendix and certainly the appendix looks inf lamed with asymmetrical shape and color consistent with acute appendicitis and some omental wrap in t hat area. We carefully identified the appendix and noted that the base of the appendix seems to be s pared from the disease, so we created a window in the base of the appendix and transected that with E ndo-OMAR 45 mm nonvascular and the mesoappendix with an Endo-OMAR 45 mm vascular stapling device and th en the further hemostasis was obtained with the help of hemoclips. Appendix was removed from abdomin al cavity using an Endo Catch through the umbilical incision. The area was irrigated and suctioned. No bowel leak. No bleeding. At that moment, I proceeded to remove the trocars under direct vision, deflated pneumoperitoneum, closed the fascia with #1 Vicryl, irrigated subcutaneous tissue and close d that with 3-0 chromic and the skin with fortunato. Sponge count and instrument counts correct. Clara ent tolerated the procedure well. Patient was sent to recovery in stable condition. AJAY/[place] Voice ID: [id number] Report ID: [id number]
[2021-12-26] MEDS: CEFOXITIN 1 GM in NA CHLORIDE 0.9% 50 ML IVPB SCH ×2 (00:54→06:29)
[2021-12-26] MEDS: METRONIDAZOLE 500mg IVPB 500 MG/100 ML BAG IV SCH ×2 (00:54→08:35)
[2021-12-26] MEDS: NA CHLORIDE 0.9% 1,000 ML IV SCH ×2 (00:54→06:01)
[2021-12-26] MEDS: HYDROCODONE/APAP 5/325 MG TAB PO PRN ×2 (01:00→09:14)
[2021-12-26 05:52] LABS: Absolute Lymphocytes (CBC) 0.8 K/uL (0.7-4.9); Hematocrit 28.9 % (36.0-45.0); Lymphocytes % 12.1 % (15.3-44.8); MCV 84.6 fL (80-100); RBC Red Blood Cell Count 3.41 M/uL (3.86-4.86)
[2021-12-26 06:01] LABS: Potassium 3.5 mmol/L (3.5-5.1)
[2021-12-26] MEDS: MORPHINE 2 MG/ML SYR IV PRN (06:32)
[2021-12-26] MEDS: ONDANSETRON 4 MG/2 ML VIAL IV PRN (06:32)
[2021-12-26 12:56] VITALS: BP 100/55; TEMP 97.6
== END 2021-12-26 14:38 | disposition home or self-care (01) ==
LOC: ER 08:53 → 4TH 14:21
PROVIDERS: ADMIT Surgery; ATTEND Surgery
PROC: 0DTJ4ZZ Resection of Appendix, Percutaneous Endoscopic Approach (ICD-10-PCS; principal; 2021-12-25 14:30)
DX: K35.80 Unspecified acute appendicitis (principal); R10.31 Right lower quadrant pain; R10.13 Epigastric pain; Z20.822 Contact with and (suspected) exposure to COVID-19
CPT/HCPCS: 85025 ×2; 80048; 36415; 81025; 88304; 83690; 80053; 74177; 94010; 96375; 96374; 99285; 87811; 44970; Q9967; J2704; J2001; J2250; J3010; J2270 ×3; J2175; J1170; J2710; J7030 ×3; J0694 ×3; J2405 ×5; G0378 ×3; 81003; 81015